=== PATIENT | male | born 1990 | race African-American/Black ===

== ENCOUNTER 2019-09-06 08:48 | Emergency (ER) | payer OTHER ==
[2019-09-06 08:55] VITALS: BP 126/72; PULSE 62; TEMP 97.8; BMI 38.2
--- NOTE | 2019-09-06 09:14 | PDOC ---
History of Present Illness - General Chief Complaint: Pain Stated Complaint: FRACTURED TOES Time Seen by Provider: 09/06/19 08:59 History Source: Patient Exam Limitations: Clinical Condition - History of Present Illness Initial Comments: 09/06/19 09:15 Patient with no significant past medical history present with complaint of fracture to right great toe, third and fourth toe status post hitting toe a week ago and was seen in [facility] which x-ray done shows multiple toes fracture. Patient reported he was given referral to follow-up with podiatry has not been able to get appointment with podiatry and has been having persistent pain to toes. Patient reported the toes was not aida taped. Patient reported has been taking Motrin 600 mg given by the ED for pain. Denies any other symptoms Is this a multiple visit Asthma Patient?: No Timing/Duration: 1 week Past History - Past Medical History Allergies/Adverse Reactions: Allergies Allergy/AdvReac Type Severity Reaction Status Date / Time No Known Allergies Allergy Verified 09/06/19 08:51 Home Medications: Ambulatory Orders Timolol Maleate 1 drop OU BID 09/06/19 COPD: No - Psycho Social/Smoking Cessation Hx Smoking History: Never smoked Hx Alcohol Use: No Drug/Substance Use Hx: No Review of Systems - Review of Systems Able to Perform ROS?: Yes Is the patient limited Kyrgyz proficient: No Constitutional: No: Chills, Fever, Malaise HEENTM: No: Symptoms Reported, See HPI, Eye Pain, Blurred Vision, Tearing, Recent change in vision, Double Vision, Cataracts, Ear Pain, Ocular Prothesis, Ear Discharge, Nose Pain, Nose Congestion, Tinnitus, Nose Bleeding, Hearing Loss , Throat Pain, Throat Swelling, Mouth Pain, Dental Problems, Difficulty Swallowing, Mouth Swelling, Other Respiratory: No: Symptoms reported, See HPI, Cough, Orthopnea, Shortness of Breath, SOB with Exertion, SOB at Rest, Stridor, Wheezing, Productive cough, Hemoptysis, Other Musculoskeletal: Yes: Symptoms Reported, See HPI, Joint Pain (pain to right great toe, 3rd and 4th toes), Muscle Pain Integumentary: No: Symptoms Reported, Bruising All Other Systems: Reviewed and Negative *Physical Exam - Vital Signs Last Vital Signs Temp Pulse Resp BP Pulse Ox 97.8 F 62 18 126/72 99 09/06/19 08:54 09/06/19 08:54 09/06/19 08:54 09/06/19 08:54 09/06/19 08:54 - Physical Exam 09/06/19 09:18 GENERAL: Well developed, well nourished. Awake and alert in mild acute distress. PULMONARY: No evidence of respiratory distress. MUSCULOSKELETAL : mild tenderness over phalanges of right great toe, third and fourth phalanges of right foot. No swelling or ecchymosis to toes. No bony deformities SKIN: Warm and dry. Normal capillary refill. No swelling, ecchymosis or bruising to right toes or foot NEUROLOGICAL: Alert, awake, appropriate. No motor deficits in the lower extremities. Gait is normal with mild limp from pain. PSYCHIATRIC: Cooperative. Good eye contact. Appropriate mood and affect. General Appearance: Yes: Nourished, Appropriately Dressed, Mild Distress Medical Decision Making - Medical Decision Making 09/06/19 09:16 Patient with no significant past medical history present with complaint of fracture to right great toe, third and fourth toe status post hitting toe a week ago and was seen in [facility] which x-ray done shows multiple toes fracture. Patient reported he was given referral to follow-up with podiatry has not been able to get appointment with podiatry and has been having persistent pain to toes. Patient reported the toes was not iada taped. Patient reported has been taking Motrin 600 mg given by the ED for pain. Denies any other symptoms No visible deformity seen on exam. Mild tenderness to right great toe, third and fourth phalanges of right foot. No swelling to area. Fourth toe aida taped to the fifth toe and third toe aida taped to second toe. Postop hard sole shoe given to patient. Patient stable for discharge to continue home Motrin as needed for pain with podiatry follow-up Discharge - Discharge Information Problems reviewed: Yes Clinical Impression/Diagnosis: Stress fracture, right toe(s), initial encounter for fracture Condition: Stable Disposition: HOME - Admission No - Follow up/Referral Referrals: Nilton Ly MD [Staff Physician] - - Patient Discharge Instructions Patient Printed Discharge Instructions: DI for Toe Fracture Additional Instructions: Continue with home Motrin as needed for pain. Follow-up with friend podiatry as soon as possible - Post Discharge Activity
== END 2019-09-06 09:35 | disposition home or self-care (01) ==
LOC: JERFT 08:48
DX: M84.377A Stress fracture, right toe(s), initial encounter for fracture (principal)
CPT/HCPCS: 99282-25